=== PATIENT | female | born 1945 | race Caucasian/White ===

== ENCOUNTER 2024-03-05 15:33 | Inpatient (IN) | payer MEDICARE ==
[~2024-03-05] VITALS: Ht 152.4 cm; Wt 62.5 kg
[~2024-03-05 15:33] MED LIST: AMIO100T4 PO; ATEN-169 PO; COU2.5T PO; DILT240C90 PO; FAMO40TA73 PO; HYDR-3965 PO; LEVO75TA PO; LORA1TAB PO; NITR0.4T48 SL; OMEP20CA16; PRAV20TA4 PO
[2024-03-05 17:28] LABS: ALANINE AMINOTRANSFERASE 16 U/L (12-78); ALBUMIN 3.6 G/DL (3.4-5.0); ALBUMIN/GLOBULIN RATIO 0.9 (1.1-1.5); ALKALINE PHOSPHATASE 92 IU/L (46-116); ANION GAP 10 (8-16); ASPARTATE AMINO TRANSFERASE 19 U/L (10-37); BILIRUBIN,TOTAL 1.7 MG/DL (0.1-1.0); BLOOD UREA NITROGEN 7 MG/DL (7-18); CALCIUM 8.7 MG/DL (8.5-10.1); CHLORIDE 100 MMOL/L (99-107); GLUCOSE 85 MG/DL (70-104); HEMOGLOBIN 12.2 g/dl (12.0-16.0); RED CELL DISTRIBUTION WIDTH 18.2 % (11.5-14.5); SODIUM 134 MMOL/L (135-145); TOTAL CARBON DIOXIDE 23.7 MMOL/L (24-32); TOTAL PROTEIN 7.7 G/DL (6.4-8.2); WHITE BLOOD COUNT 6.6 X10'3 (4.5-11.0); eCRCL 74 ML/MIN; eGFR > 90 ML/MIN
[2024-03-05 17:30] LABS: BASOPHILS % (AUTO) 0.6 % (0-1); EOSINOPHILS # (AUTO) 0.2 X10'3 (0-0.9); EOSINOPHILS % (AUTO) 2.5 % (0-6); HEMATOCRIT 37.5 % (35.0-45.0); LYMPHOCYTES # (AUTO) 1.5 X10'3 (1.1-4.8); LYMPHOCYTES % (AUTO) 22.8 % (21-51); MEAN CORPUSCULAR HEMOGLOBIN 27.2 PG (27.0-31.0); MEAN CORPUSCULAR HGB CONC 32.5 g/dL (33.0-36.5); MEAN CORPUSCULAR VOLUME 83.8 FL (78-98); MEAN PLATELET VOLUME 8.6 FL (7.4-10.4); MONOCYTES # (AUTO) 0.8 X10'3 (0-0.9); MONOCYTES % (AUTO) 11.7 % (2-12); NEUTROPHILS # (AUTO) 4.1 X10'3 (1.8-7.7); NEUTROPHILS % (AUTO) 62.4 % (42-75); PLATELET COUNT 229 X10'3 (140-440); RED BLOOD COUNT 4.48 X10'6 (4.20-5.60)
[2024-03-05 17:36] LABS: PRO BRAIN NATRIURETIC PEPTIDE 1443 PG/ML (0-450)
[2024-03-05] MEDS ORDERED: ondansetron/PF 4mg/2ml inj IV PRN (20:25)
[2024-03-05] MEDS ORDERED: magnesium hydroxide 30ml (MOM) UD suspension PO PRN (20:25)
[2024-03-05] MEDS: normal saline 1000ml 1,000 ML IV SCH (20:25)
[2024-03-05] MEDS ORDERED: magnesium sulf-water 2g/50mL 50 ML IV PRN (20:25)
[2024-03-05] MEDS ORDERED: potassium Cl 40MEQ/1/2NS 520ml 520 ML IV PRN (20:25)
[2024-03-05] MEDS ORDERED: potassium Cl 20 mEq SR tablet PO PRN ×2 (20:25)
[2024-03-05] MEDS ORDERED: mag hydrox/Alum hydrox/simeth 30ml oral suspension PO PRN (20:25)
[2024-03-05] MEDS ORDERED: magnesium sulf-water 4G/100mL 100 ML IV PRN (20:25)
[2024-03-05 21:40] LABS: APTT 34 SECONDS (22-32); INR 1.1 INR; PROTHROMBIN TIME 11.9 SECONDS (9.0-12.0)
[2024-03-05] MEDS ORDERED: METF-1203 PO (22:05)
[2024-03-05] MEDS ORDERED: PANT40TA54 PO (22:05)
[2024-03-05] MEDS ORDERED: LEVE500T PO (22:05)
[2024-03-05 22:30] VITALS: BP 137/65; PULSE 98; RESP 15; TEMP 97.4; O2SAT 95
[2024-03-06] VITALS (30 sets, daily range): BP systolic 104–160; BP diastolic 55–89; PULSE 81–192; RESP 13–25; TEMP 97.1–98.1; O2SAT 91–99
[2024-03-06 06:24] LABS: BASOPHILS % (AUTO) 0.6 % (0-1); EOSINOPHILS # (AUTO) 0.1 X10'3 (0-0.9); EOSINOPHILS % (AUTO) 1.3 % (0-6); HEMATOCRIT 37.7 % (35.0-45.0); HEMOGLOBIN 12.5 g/dl (12.0-16.0); LYMPHOCYTES # (AUTO) 1.3 X10'3 (1.1-4.8); LYMPHOCYTES % (AUTO) 19.2 % (21-51); MEAN CORPUSCULAR HEMOGLOBIN 27.6 PG (27.0-31.0); MEAN CORPUSCULAR HGB CONC 33.1 g/dL (33.0-36.5); MEAN CORPUSCULAR VOLUME 83.3 FL (78-98); MEAN PLATELET VOLUME 8.4 FL (7.4-10.4); MONOCYTES # (AUTO) 0.8 X10'3 (0-0.9); MONOCYTES % (AUTO) 11.6 % (2-12); NEUTROPHILS # (AUTO) 4.4 X10'3 (1.8-7.7); NEUTROPHILS % (AUTO) 67.3 % (42-75); PLATELET COUNT 230 X10'3 (140-440); RED BLOOD COUNT 4.53 X10'6 (4.20-5.60); WHITE BLOOD COUNT 6.5 X10'3 (4.5-11.0)
[2024-03-06 06:57] LABS: ALBUMIN 3.2 G/DL (3.4-5.0); ANION GAP 16 (8-16); BLOOD UREA NITROGEN 7 MG/DL (7-18); BUN/CREATININE RATIO 11.9 (10.0-20.0); CALCIUM 8.8 MG/DL (8.5-10.1); CHLORIDE 99 MMOL/L (99-107); CHOL/HDL RATIO 2.3 (0.00-4.99); CHOLESTEROL 167 MG/DL (0-200); CREATININE 0.59 MG/DL (0.40-0.90); GLUCOSE 60 MG/DL (70-104); HDL CHOLESTEROL 72 MG/DL (35-60); LDL CHOLESTEROL 84 MG/DL (50-100); MAGNESIUM 1.5 MG/DL (1.5-2.4); SODIUM 135 MMOL/L (135-145); TRIGLYCERIDES 82 MG/DL (20-135); eCRCL 55 ML/MIN; eGFR > 90 ML/MIN
[2024-03-06] MEDS: K and/or MAG REPLACEMENT MC SCH (08:00)
[2024-03-06] MEDS: docusate sod 100mg capsule PO SCH (08:00)
[2024-03-06] MEDS: HYDROcodone/acetaminophen 5mg/325mg tablet PO PRN (10:35)
[2024-03-06] MEDS ORDERED: ondansetron/PF 4mg/2ml inj IV PRN (15:15)
[2024-03-06] MEDS ORDERED: meperidine/PF 25mg/ml syringe IV PRN ×2 (15:15)
[2024-03-06] MEDS ORDERED: proCHLORperazine 10 MG/2 ml inj IV PRN (15:15)
[2024-03-06] MEDS ORDERED: hydrALAZINE 20mg/ml inj. IV PRN (15:15)
[2024-03-06] MEDS ORDERED: HYDROmorphone/PF 0.2 MG/ML SYRINGE IV PRN ×2 (15:15)
[2024-03-06] MEDS ORDERED: sevoflurane 250ml liquid IH ONE (16:16)
[2024-03-06] MEDS ORDERED: fentaNYL/PF 50MCG/1 ML 2ML syringe ONE (16:20)
[2024-03-06] MEDS ORDERED: ROPIVAcaine 0.5% (5mg/ml) 30ml vial ONE (16:54)
[2024-03-06] MEDS ORDERED: midazolam 1 mg/ML 2ml injection ONE (16:54)
[2024-03-06] MEDS ORDERED: 0.9 % SODIUM CHLORIDE 10 ML VIAL ONE (16:54)
[2024-03-06] MEDS ORDERED: ceFAZolin 1000mg inj ONE ×2 (16:54)
[2024-03-06] MEDS ORDERED: LIDOcaine 2% (20mg/ml) 5ml vial ONE (16:54)
[2024-03-06] MEDS ORDERED: ePHEDrine 50MG/ML INJ. ONE (16:54)
[2024-03-06] MEDS ORDERED: dexamethasone sod phosphate 4mg/ml inj. ONE (16:54)
[2024-03-06] MEDS ORDERED: propofol inj 20 ML IV ONE (16:54)
[2024-03-06] MEDS ORDERED: phenylephrine 10mg/ml inj. -priapism dosing ONE (16:54)
[2024-03-06] MEDS: labetalol 20mg/4ml (5mg/ml) syringe IV PRN (18:01)
[2024-03-06] MEDS: acetaminophen 1,000mg/100ml IV 100 ML IV ONE (18:22)
[2024-03-06] MEDS: meperidine/PF 25mg/ml syringe IV PRN (18:22)
[2024-03-06] MEDS: metoprolol tartrate 1mg/ml inj IV ONE (19:00)
[2024-03-06] MEDS: ringers solution, lacted 1,000 ML IV SCH (20:55)
[2024-03-06] MEDS: cloNIDine hcl/PF 100mcg/ml inj ONE (20:55)
[2024-03-06] MEDS: atorvastatin 10mg tablet PO SCH (21:05)
[2024-03-06] MEDS: diltiazem CD 120mg capsule (once-daily) PO SCH (21:05)
[2024-03-06] MEDS: enoxaparin 40mg/0.4ml syringe SQ SCH (21:07)
[2024-03-07] VITALS (11 sets, daily range): BP systolic 92–130; BP diastolic 49–78; PULSE 64–94; RESP 16–19; TEMP 97.4–99; O2SAT 94–98
[2024-03-07] MEDS ORDERED: cefazolin 2gm/D5W 100mL 100 ML IV SCH
[2024-03-07] MEDS: cefazolin 2gm/D5W 100mL 100 ML IV SCH (01:14)
[2024-03-07] MEDS: acetaminophen 325mg tablet PO PRN (04:43)
[2024-03-07 05:50] LABS: ANION GAP 11 (8-16); BLOOD UREA NITROGEN 7 MG/DL (7-18); BUN/CREATININE RATIO 10.9 (10.0-20.0); CALCIUM 8.8 MG/DL (8.5-10.1); CHLORIDE 100 MMOL/L (99-107); CREATININE 0.64 MG/DL (0.40-0.90); GLUCOSE 189 MG/DL (70-104); MAGNESIUM 1.4 MG/DL (1.5-2.4); POTASSIUM 4.1 MMOL/L (3.5-5.1); SODIUM 133 MMOL/L (135-145); TOTAL CARBON DIOXIDE 21.8 MMOL/L (24-32); eCRCL 50 ML/MIN; eGFR 89 ML/MIN
[2024-03-07 05:52] LABS: BASOPHILS % (AUTO) 0.2 % (0-1); EOSINOPHILS % (AUTO) 0 % (0-6); HEMATOCRIT 36.1 % (35.0-45.0); HEMOGLOBIN 11.8 g/dl (12.0-16.0); LYMPHOCYTES # (AUTO) 0.6 X10'3 (1.1-4.8); LYMPHOCYTES % (AUTO) 9.5 % (21-51); MEAN CORPUSCULAR HEMOGLOBIN 27.1 PG (27.0-31.0); MEAN CORPUSCULAR HGB CONC 32.6 g/dL (33.0-36.5); MEAN CORPUSCULAR VOLUME 83.1 FL (78-98); MEAN PLATELET VOLUME 8.5 FL (7.4-10.4); MONOCYTES # (AUTO) 0.6 X10'3 (0-0.9); MONOCYTES % (AUTO) 8.7 % (2-12); NEUTROPHILS # (AUTO) 5.3 X10'3 (1.8-7.7); NEUTROPHILS % (AUTO) 81.6 % (42-75); PLATELET COUNT 228 X10'3 (140-440); RED BLOOD COUNT 4.34 X10'6 (4.20-5.60); RED CELL DISTRIBUTION WIDTH 18.4 % (11.5-14.5); WHITE BLOOD COUNT 6.5 X10'3 (4.5-11.0)
[2024-03-07] MEDS: magnesium Cl slow-release 64mg tablet PO PRN (07:24)
[2024-03-07] MEDS: levoTHYROXINE 75mcg tablet PO SCH (07:24)
[2024-03-07] MEDS: atenolol 50mg tablet PO SCH (09:20)
[2024-03-07] MEDS: magnesium sulf-water 4G/100mL 100 ML IV ONE (14:19)
[2024-03-07] MEDS: rivaroxaban 20mg tablet PO SCH (18:07)
[2024-03-07] MEDS: enoxaparin 40mg/0.4ml syringe SQ ONE (20:00)
[2024-03-08] MEDS: diltiazem 5mg/ml 5ml inj. IV ONE (00:42)
[2024-03-08] MEDS: haloperidol lactate 5mg/ml inj IM ONE (00:42)
[2024-03-08] MEDS: LORazepam 2 mg/ml vial IV ONE (00:52)
[2024-03-08 02:00] VITALS: BP 134/75; PULSE 84; RESP 14; TEMP 97.5; O2SAT 94
[2024-03-08 05:13] VITALS: BP 125/78; PULSE 81; RESP 16; TEMP 97.5; O2SAT 92
[2024-03-08 05:44] LABS: BASOPHILS % (AUTO) 0.2 % (0-1); EOSINOPHILS # (AUTO) 0.1 X10'3 (0-0.9); EOSINOPHILS % (AUTO) 0.6 % (0-6); HEMATOCRIT 36.6 % (35.0-45.0); HEMOGLOBIN 11.9 g/dl (12.0-16.0); LYMPHOCYTES # (AUTO) 1.6 X10'3 (1.1-4.8); LYMPHOCYTES % (AUTO) 15.9 % (21-51); MEAN CORPUSCULAR HEMOGLOBIN 27.2 PG (27.0-31.0); MEAN CORPUSCULAR HGB CONC 32.6 g/dL (33.0-36.5); MEAN CORPUSCULAR VOLUME 83.3 FL (78-98); MEAN PLATELET VOLUME 8.9 FL (7.4-10.4); MONOCYTES # (AUTO) 0.8 X10'3 (0-0.9); MONOCYTES % (AUTO) 8.1 % (2-12); NEUTROPHILS # (AUTO) 7.7 X10'3 (1.8-7.7); NEUTROPHILS % (AUTO) 75.2 % (42-75); PLATELET COUNT 241 X10'3 (140-440); RED BLOOD COUNT 4.39 X10'6 (4.20-5.60); RED CELL DISTRIBUTION WIDTH 18.5 % (11.5-14.5); WHITE BLOOD COUNT 10.3 X10'3 (4.5-11.0)
[2024-03-08 05:52] LABS: ANION GAP 4 (8-16); BLOOD UREA NITROGEN 12 MG/DL (7-18); BUN/CREATININE RATIO 21.1 (10.0-20.0); CHLORIDE 102 MMOL/L (99-107); CREATININE 0.57 MG/DL (0.40-0.90); GLUCOSE 141 MG/DL (70-104); MAGNESIUM 2.1 MG/DL (1.5-2.4); SODIUM 133 MMOL/L (135-145); eCRCL 57 ML/MIN; eGFR > 90 ML/MIN
[2024-03-08 05:53] LABS: POTASSIUM 4.4 MMOL/L (3.5-5.1)
[2024-03-08 06:00] VITALS: BP 142/67; PULSE 60; RESP 18; TEMP 98.1; O2SAT 93
[2024-03-08 08:00] VITALS: RESP 18; O2SAT 93
[2024-03-08 11:00] VITALS: BP 120/65; PULSE 60; RESP 20; TEMP 98.2; O2SAT 95
[2024-03-08] MEDS ORDERED: ATOR10TA PO (11:13)
[2024-03-08] MEDS ORDERED: RIVA20TA PO (11:13)
[2024-03-08] MEDS ORDERED: HYDR-3964 PO (11:13)
[2024-03-08] MEDS ORDERED: DOCU100C40 PO (11:13)
[2024-03-08] MEDS ORDERED: MAG30ORA PO (11:13)
== END 2024-03-08 13:08 | DRG 481 ==
LOC: ER 15:34 → ED HOLD 20:38 → ORTHO 4S 22:15 → PCU 3S 03-06 20:30
PROVIDERS: ADMIT Internal Medicine Critical Care Medicine; ATTEND Family Medicine
PROC: 0QH734Z Insertion of Internal Fixation Device into Left Upper Femur, Percutaneous Approach (ICD-10-PCS; principal; 2024-03-06 16:16)
DX: S72.012A Unspecified intracapsular fracture of left femur, initial encounter for closed fracture (principal); I48.20 Chronic atrial fibrillation, unspecified; I25.10 Atherosclerotic heart disease of native coronary artery without angina pectoris; E11.9 Type 2 diabetes mellitus without complications; E78.00 Pure hypercholesterolemia, unspecified; E03.9 Hypothyroidism, unspecified; K21.9 Gastro-esophageal reflux disease without esophagitis; W18.39XA Other fall on same level, initial encounter; Z95.1 Presence of aortocoronary bypass graft; Z79.84 Long term (current) use of oral hypoglycemic drugs; Z79.899 Other long term (current) drug therapy; Z88.8 Allergy status to other drugs, medicaments and biological substances; Z88.5 Allergy status to narcotic agent; Z86.73 Personal history of transient ischemic attack (TIA), and cerebral infarction without residual deficits; Z88.1 Allergy status to other antibiotic agents
CPT/HCPCS: 36415; 71045; 72170; 72192; 73502; 76000; 80048; 80053; 80061; 82948; 83036; 83735; 83880; 84484; 85025; 85610; 85730; 87081; 93005; 97161; 97530; 97535; 99285; A4314; A4615; A4618; A5200; A7000; C1713; C1758; G0378; J0131; J0690; J0735; J1100; J1630; J1650; J2060; J2175; J2250; J2370; J2405; J2704; J2795; J3010; J3475; J3490; J7030; J7120

== ENCOUNTER 2024-04-26 12:34 | Outpatient (CLI) | payer MEDICARE ==
[~2024-04-26 12:34] MED LIST changes: -AMIO100T4 PO; +ATOR10TA PO; -COU2.5T PO; +DOCU100C40 PO; -FAMO40TA73 PO; +HYDR-3964 PO; -HYDR-3965 PO; +LEVE500T PO; -LORA1TAB PO; +MAG30ORA PO; +METF-1203 PO; -NITR0.4T48 SL; -OMEP20CA16; +PANT40TA54 PO; -PRAV20TA4 PO; +RIVA20TA PO
== END 2024-04-26 23:59 | disposition home or self-care (01) ==
LOC: RAD 12:34
PROVIDERS: ATTEND Nurse Practitioner Family
DX: S06.0X0D Concussion without loss of consciousness, subsequent encounter (principal); R51.9 Headache, unspecified; W19.XXXD Unspecified fall, subsequent encounter
CPT/HCPCS: 70450